=== PATIENT | female | born 1995 | race Caucasian/White ===

== ENCOUNTER 2017-10-04 11:22 | Emergency (ER) | payer OTHER ==
[~2017-10-04] VITALS: Ht 165.1 cm; Wt 63.5 kg
[~2017-10-04 11:22] MED LIST: CALZINTL TP; DIPH25 PO; DIVA250EC; FAMO20 PO; Keflex500 MG PO; LORTAB 10 MG-3473 ML PO; NAPR250 PO; Naprosyn500 MG PO; PRED20 PO; PRED5 PO; RXCEPH250S PO; RXCODACESY PO; TRIA80TC TOP; [UNRECOGNIZED DRUG - REMARK] PO; [UNRECOGNIZED DRUG - REMARK] PO
[2017-10-04 13:13] LABS: BASOPHILS ABSOLUTE AUTO 0.01 K/mm3 (0.00-0.23); BASOPHILS PERCENT AUTO 0 % (0-2); EOSINOPHILS ABSOLUTE AUTO 0.01 K/mm3 (0.00-0.68); EOSINOPHILS PERCENT AUTO 0 % (0-6); Hematocrit 42.7 % (33.0-51.0); Hemoglobin 14.5 g/dL (11.5-16.0); IMMATURE GRAN ABSOLUTE AUTO 0.02 K/mm3 (0.00-0.10); IMMATURE GRAN PERCENT AUTO 0 % (0-1); LYMPHOCYTES ABSOLUTE AUTO 1.16 K/mm3 (0.84-5.20); LYMPHOCYTES PERCENT AUTO 16 % (21-46); MONOCYTES ABSOLUTE AUTO 0.32 K/mm3 (0.16-1.47); MONOCYTES PERCENT AUTO 4 % (4-13); Mean Corpuscular HGB 30.2 pg (26.0-34.0); Mean Corpuscular Volume 89 fL (80-100); Mean Platelet Volume 9.8 fL (9.1-12.4); NEUTROPHILS ABSOLUTE AUTO 5.96 K/mm3 (1.96-9.15); NEUTROPHILS PERCENT AUTO 80 % (41-73); Platelet Count 304 K/mm3 (150-400); RDW Coefficient Variation 12.2 % (11.7-14.2); RDW Standard Deviation 39.5 fL (35.1-46.3); White Blood Cell Count 7.48 K/mm3 (4.00-11.30)
[2017-10-04 13:23] LABS: Alanine Aminotransfer (ALT/SGP 13 U/L (12-78); Albumin, Blood 4.4 g/dL (3.4-5.0); Albumin/Globulin Ratio 1.1 (0.8-1.8); Alk Phos 77 U/L (50-136); Anion Gap 7 mmol/L (6-16); Aspartate Aminotrans (AST/SGOT 19 U/L (12-37); Bilirubin, Total 0.7 mg/dL (0.1-1.0); Blood Urea Nitrogen 7 mg/dL (8-24); Bun/Creatinine Ratio 10.9 (12.0-20.0); CO2, Blood 25 mmol/L (21-32); Calcium, Blood 9.6 mg/dL (8.5-10.1); Chloride, Blood 106 mmol/L (98-108); Creatinine, Blood 0.65 mg/dL (0.40-1.00); Globulin, Blood 4.1 g/dL (2.2-4.0); Glomerular Filtration Rate >60 (60-); Glucose, Blood 91 mg/dL (70-99); Potassium, Blood 3.8 mmol/L (3.5-5.5); Sodium, Blood 138 mmol/L (136-145); Total Protein, Blood 8.5 g/dL (6.4-8.2)
[2017-10-04 13:40] LABS: Source, Urine Clean Catch
[2017-10-04 13:44] LABS: Bilirubin, Urine Neg (Neg); Blood, Urine 5+ (Neg); Glucose Qualitative, Urine Neg (Neg); Ketones, Urine 3+ (Neg); Leukocyte Esterase, Urine 2+ (Neg); Nitrite, Urine Neg (Neg); Protein, Urine 2+ (Neg); Urobilinogen, Urine NORM (Normal)
[2017-10-04 14:38] LABS: Appearance, Urine Cloudy (Clear); Color, Urine Red (P-Yellow)
[2017-10-04 14:41] LABS: Red Blood Cells, Urine TNTC /hpf (0-2); Squamous Epithelial Cells Few /hpf (Few)
[2017-10-04 14:42] LABS: Bacteria Mod /hpf
[2017-10-04] MEDS ORDERED: Macrobid 100 M100 MG PO (15:18)
== END 2017-10-04 15:36 | disposition home or self-care (01) ==
LOC: ER 11:22
PROVIDERS: Physician Assistant
DX: N30.90 Cystitis, unspecified without hematuria (principal); K92.1 Melena; Z88.8 Allergy status to other drugs, medicaments and biological substances
CPT/HCPCS: 36415; 80053; 81001; 81025; 82272; 83690; 85025; 87086; 99284

== ENCOUNTER 2018-03-11 10:45 | Emergency (ER) | payer OTHER ==
[~2018-03-11] VITALS: Ht 165.1 cm; Wt 63.5 kg
[~2018-03-11 10:45] MED LIST changes: +Macrobid 100 M100 MG PO
== END 2018-03-11 12:12 | disposition home or self-care (01) ==
LOC: ER 10:45
DX: S61.212A Laceration without foreign body of right middle finger without damage to nail, initial encounter (principal); W26.0XXA Contact with knife, initial encounter; Z88.8 Allergy status to other drugs, medicaments and biological substances
CPT/HCPCS: 12001; 99283

== ENCOUNTER 2018-06-12 18:02 | Observation (INO) | payer OTHER ==
[~2018-06-12] VITALS: Ht 165.1 cm; Wt 72.7 kg
[2018-06-12 20:06] LABS: BASOPHILS ABSOLUTE AUTO 0.04 K/mm3 (0.00-0.23); BASOPHILS PERCENT AUTO 1 % (0-2); EOSINOPHILS ABSOLUTE AUTO 0.04 K/mm3 (0.00-0.68); EOSINOPHILS PERCENT AUTO 1 % (0-6); Hematocrit 38.3 % (33.0-51.0); Hemoglobin 13.1 g/dL (11.5-16.0); IMMATURE GRAN ABSOLUTE AUTO 0.03 K/mm3 (0.00-0.10); IMMATURE GRAN PERCENT AUTO 0 % (0-1); LYMPHOCYTES ABSOLUTE AUTO 1.55 K/mm3 (0.84-5.20); LYMPHOCYTES PERCENT AUTO 20 % (21-46); MONOCYTES ABSOLUTE AUTO 0.45 K/mm3 (0.16-1.47); MONOCYTES PERCENT AUTO 6 % (4-13); Mean Corpuscular HGB 30.2 pg (26.0-34.0); Mean Corpuscular HGB Conc 34.2 g/dL (31.5-36.5); Mean Corpuscular Volume 88 fL (80-100); Mean Platelet Volume 9.7 fL (9.1-12.4); NEUTROPHILS ABSOLUTE AUTO 5.68 K/mm3 (1.96-9.15); NEUTROPHILS PERCENT AUTO 73 % (41-73); Platelet Count 302 K/mm3 (150-400); RDW Coefficient Variation 11.8 % (11.7-14.2); RDW Standard Deviation 38.2 fL (35.1-46.3); Red Blood Cell Count 4.34 M/mm3 (3.80-5.20); White Blood Cell Count 7.79 K/mm3 (4.00-11.30)
[2018-06-12 20:20] LABS: Anion Gap 8 mmol/L (6-16); Blood Urea Nitrogen 10 mg/dL (8-24); Bun/Creatinine Ratio 14.3 (12.0-20.0); CO2, Blood 27 mmol/L (21-32); Calcium, Blood 9.1 mg/dL (8.5-10.1); Chloride, Blood 105 mmol/L (98-108); Glomerular Filtration Rate >60 (60-); Glucose, Blood 98 mg/dL (70-99); Potassium, Blood 3.8 mmol/L (3.5-5.5); Sodium, Blood 140 mmol/L (136-145)
[2018-06-13 00:30] LABS: International Normalized Ratio 1.06; Prothrombin Time Results 10.9 Sec (9.7-11.5)
[2018-06-13 05:35] LABS: BASOPHILS ABSOLUTE AUTO 0.04 K/mm3 (0.00-0.23); BASOPHILS PERCENT AUTO 1 % (0-2); EOSINOPHILS ABSOLUTE AUTO 0.04 K/mm3 (0.00-0.68); EOSINOPHILS PERCENT AUTO 1 % (0-6); Hematocrit 38.3 % (33.0-51.0); Hemoglobin 12.7 g/dL (11.5-16.0); IMMATURE GRAN ABSOLUTE AUTO 0.03 K/mm3 (0.00-0.10); IMMATURE GRAN PERCENT AUTO 0 % (0-1); LYMPHOCYTES ABSOLUTE AUTO 2.02 K/mm3 (0.84-5.20); LYMPHOCYTES PERCENT AUTO 26 % (21-46); MONOCYTES ABSOLUTE AUTO 0.66 K/mm3 (0.16-1.47); MONOCYTES PERCENT AUTO 9 % (4-13); Mean Corpuscular HGB 29.2 pg (26.0-34.0); Mean Corpuscular HGB Conc 33.2 g/dL (31.5-36.5); Mean Corpuscular Volume 88 fL (80-100); NEUTROPHILS ABSOLUTE AUTO 4.98 K/mm3 (1.96-9.15); NEUTROPHILS PERCENT AUTO 64 % (41-73); Platelet Count 299 K/mm3 (150-400); RDW Coefficient Variation 11.8 % (11.7-14.2); RDW Standard Deviation 38.3 fL (35.1-46.3); Red Blood Cell Count 4.35 M/mm3 (3.80-5.20); White Blood Cell Count 7.77 K/mm3 (4.00-11.30)
[2018-06-13 05:59] LABS: Anion Gap 7 mmol/L (6-16); Blood Urea Nitrogen 11 mg/dL (8-24); Bun/Creatinine Ratio 15.4 (12.0-20.0); CO2, Blood 27 mmol/L (21-32); Calcium, Blood 8.5 mg/dL (8.5-10.1); Chloride, Blood 106 mmol/L (98-108); Creatinine, Blood 0.72 mg/dL (0.40-1.00); Glomerular Filtration Rate >60 (60-); Glucose, Blood 89 mg/dL (70-99); Potassium, Blood 3.6 mmol/L (3.5-5.5); Sodium, Blood 140 mmol/L (136-145)
[2018-06-14] MEDS ORDERED: CLAR500 PO (17:20)
[2018-06-14] MEDS ORDERED: OMEPRAZOLE MAGN20 MG PO (17:21)
[2018-06-14] MEDS ORDERED: METR500 PO (17:21)
== END 2018-06-14 18:18 | disposition home or self-care (01) ==
LOC: ER 18:02 → MEDS 18:03
PROVIDERS: Emergency Medicine; Family Medicine
DX: K92.1 Melena (principal); B96.81 Helicobacter pylori [H. pylori] as the cause of diseases classified elsewhere; G91.9 Hydrocephalus, unspecified; R62.50 Unspecified lack of expected normal physiological development in childhood; Z88.1 Allergy status to other antibiotic agents
CPT/HCPCS: 36415; 74019; 80048; 85025; 85610; 87338; 87493; 96361; 96374; 96376; 99285-25; C9113; G0378; J7030; J7120

== ENCOUNTER → 2018-11-06 | Outpatient (CLI) | payer OTHER ==
[~2018-11-06] MED LIST changes: +CLAR500 PO; +METR500 PO; +OMEPRAZOLE MAGN20 MG PO
[2018-11-08 00:12] LABS: CHLAMYDIA TRACHOMATIS, NAA Negative (Negative); NEISSERIA GONORRHOEAE, NAA Negative (Negative)
== END ==
LOC: LAB UCHC 16:19 → LAB SHORT 16:19
PROVIDERS: Nurse Practitioner Family
DX: R87.89 Other abnormal findings in specimens from female genital organs (principal)
CPT/HCPCS: 87070; 87205; 87491; 87529; 87591

== ENCOUNTER 2018-11-20 17:49 | Emergency (ER) | payer OTHER ==
[~2018-11-20] VITALS: Ht 165.1 cm; Wt 72.6 kg
[2018-11-20 19:08] LABS: BASOPHILS ABSOLUTE AUTO 0.03 K/mm3 (0.00-0.23); BASOPHILS PERCENT AUTO 0 % (0-2); EOSINOPHILS ABSOLUTE AUTO 0.04 K/mm3 (0.00-0.68); EOSINOPHILS PERCENT AUTO 1 % (0-6); Hematocrit 44.6 % (33.0-51.0); Hemoglobin 14.8 g/dL (11.5-16.0); IMMATURE GRAN ABSOLUTE AUTO 0.05 K/mm3 (0.00-0.10); IMMATURE GRAN PERCENT AUTO 1 % (0-1); LYMPHOCYTES ABSOLUTE AUTO 1.54 K/mm3 (0.84-5.20); LYMPHOCYTES PERCENT AUTO 20 % (21-46); MONOCYTES ABSOLUTE AUTO 0.41 K/mm3 (0.16-1.47); MONOCYTES PERCENT AUTO 5 % (4-13); Mean Corpuscular HGB Conc 33.2 g/dL (31.5-36.5); Mean Corpuscular Volume 91 fL (80-100); Mean Platelet Volume 9.5 fL (9.1-12.4); NEUTROPHILS ABSOLUTE AUTO 5.55 K/mm3 (1.96-9.15); NEUTROPHILS PERCENT AUTO 73 % (41-73); Platelet Count 377 K/mm3 (150-400); RDW Standard Deviation 39.8 fL (35.1-46.3); Red Blood Cell Count 4.93 M/mm3 (3.80-5.20); White Blood Cell Count 7.62 K/mm3 (4.00-11.30)
[2018-11-20 19:19] LABS: Source, Urine Clean Catch
[2018-11-20 19:22] LABS: Bilirubin, Urine Neg (Neg); Blood, Urine 4+ (Neg); Glucose Qualitative, Urine Neg (Neg); Ketones, Urine Neg (Neg); Leukocyte Esterase, Urine 1+ (Neg); Nitrite, Urine Neg (Neg); Protein, Urine Neg (Neg); Urobilinogen, Urine NORM (Normal)
[2018-11-20 19:31] LABS: Appearance, Urine Clear (Clear); Color, Urine Yellow (P-Yellow); Red Blood Cells, Urine 0-2 /hpf (0-2); Squamous Epithelial Cells Mod /hpf (Few)
[2018-11-20 19:32] LABS: Bacteria Mod /hpf
[2018-11-20 19:39] LABS: Alanine Aminotransfer (ALT/SGP 20 U/L (12-78); Albumin, Blood 4.4 g/dL (3.4-5.0); Albumin/Globulin Ratio 1.1 (0.8-1.8); Alk Phos 104 U/L (50-136); Anion Gap 8 mmol/L (6-16); Aspartate Aminotrans (AST/SGOT 22 U/L (12-37); Bilirubin, Total 0.4 mg/dL (0.1-1.0); Blood Urea Nitrogen 11 mg/dL (8-24); Bun/Creatinine Ratio 20.9 (12.0-20.0); CO2, Blood 25 mmol/L (21-32); Calcium, Blood 9.8 mg/dL (8.5-10.1); Chloride, Blood 104 mmol/L (98-108); Creatinine, Blood 0.53 mg/dL (0.40-1.00); Globulin, Blood 4.1 g/dL (2.2-4.0); Glomerular Filtration Rate >60 (60-); Glucose, Blood 110 mg/dL (70-99); Potassium, Blood 3.6 mmol/L (3.5-5.5); Sodium, Blood 137 mmol/L (136-145); Total Protein, Blood 8.5 g/dL (6.4-8.2)
== END 2018-11-20 23:21 | disposition home or self-care (01) ==
LOC: ER 17:49
PROVIDERS: Physician Assistant
DX: R10.30 Lower abdominal pain, unspecified (principal); Z88.1 Allergy status to other antibiotic agents; Z88.8 Allergy status to other drugs, medicaments and biological substances
CPT/HCPCS: 36415; 74177; 76857; 80053; 81001; 81025; 83690; 85025; 87086; 99284-25; Q9967

== ENCOUNTER → 2019-03-12 | Outpatient (CLI) | payer OTHER ==
[~2019-03-12] MED LIST changes: +CEPH500 PO
== END | disposition home or self-care (01) ==
LOC: LAB SHORT 15:04 → LAB EV 15:04
DX: N39.0 Urinary tract infection, site not specified (principal)
CPT/HCPCS: 87077; 87086; 87186

== ENCOUNTER 2019-05-30 02:45 | Emergency (ER) | payer OTHER ==
[~2019-05-30] VITALS: Ht 165.1 cm; Wt 68.0 kg
[~2019-05-30 02:45] MED LIST changes: -CEPH500 PO
[2019-05-30 03:05] LABS: Chloride (POC) 101 mmol/L (98-108); Creatinine (POC) 0.6 mg/dL (0.6-1.0); Glucose (ISTAT POC) 102 mg/dL (70-99); Hemoglobin (POC) 14.6 g/dL (12.0-16.0); Potassium (POC) 3.3 mmol/L (3.5-5.5); Sodium (POC) 139 mmol/L (135-148); Total CO2 (POC) 27 mmol/L (21-32)
[2019-05-30 03:08] LABS: Source, Urine Clean Catch
[2019-05-30 03:10] LABS: Bilirubin, Urine Neg (Neg); Blood, Urine 5+ (Neg); Glucose Qualitative, Urine Neg (Neg); Ketones, Urine Neg (Neg); Leukocyte Esterase, Urine 2+ (Neg); Nitrite, Urine Neg (Neg); Protein, Urine 1+ (Neg); Urobilinogen, Urine NORM (Normal)
[2019-05-30 03:19] LABS: Appearance, Urine Hazy (Clear); Color, Urine Yellow (P-Yellow)
[2019-05-30 03:20] LABS: Amorphous Light (0-Heavy); Bacteria Many /hpf; Red Blood Cells, Urine 0-2 /hpf (0-2); Squamous Epithelial Cells Many /hpf (Few); White Blood Cells, Urine 25-50 /hpf (0-5)
[2019-05-30] MEDS ORDERED: CEPH500 PO (03:38)
== END 2019-05-30 04:05 | disposition home or self-care (01) ==
LOC: ER 02:45
PROVIDERS: Emergency Medicine
DX: N39.0 Urinary tract infection, site not specified (principal); Z88.1 Allergy status to other antibiotic agents; Z88.8 Allergy status to other drugs, medicaments and biological substances
CPT/HCPCS: 36415; 80047; 81001; 85014; 87086; 96374; 99284-25; J1885

== ENCOUNTER → 2019-08-01 | Outpatient (CLI) | payer OTHER ==
[~2019-08-01] MED LIST changes: +CEPH500 PO
[2019-08-01 11:01] LABS: Source, Urine Clean Catch
[2019-08-01 12:46] LABS: Bilirubin, Urine Neg (Neg); Blood, Urine 2+ (Neg); Glucose Qualitative, Urine Neg (Neg); Ketones, Urine Neg (Neg); Leukocyte Esterase, Urine Neg (Neg); Nitrite, Urine Neg (Neg); Protein, Urine Neg (Neg); Urobilinogen, Urine NORM (Normal)
[2019-08-01 13:43] LABS: Appearance, Urine Clear (Clear); Color, Urine Yellow (P-Yellow)
[2019-08-01 13:44] LABS: White Blood Cells, Urine 0-2 /hpf (0-5)
[2019-08-01 13:45] LABS: Bacteria Few /hpf; Red Blood Cells, Urine 0-2 /hpf (0-2); Squamous Epithelial Cells Mod /hpf (Few)
[2019-08-01 14:40] LABS: Candida species (DNA Probe) Negative (NEGATIVE); G. vaginalis (DNA Probe) Negative (NEGATIVE); T. vaginalis (DNA Probe) Negative (NEGATIVE)
== END | disposition home or self-care (01) ==
LOC: LAB 10:05 → LAB SHORT 10:05
PROVIDERS: Advanced Practice Midwife
DX: N76.0 Acute vaginitis (principal); R10.2 Pelvic and perineal pain
CPT/HCPCS: 81001; 87086; 87480; 87510; 87660

== ENCOUNTER 2019-08-24 18:20 | Emergency (ER) | payer OTHER ==
[~2019-08-24] VITALS: Ht 167.6 cm; Wt 77.1 kg
[2019-08-24 20:09] LABS: BASOPHILS ABSOLUTE AUTO 0.03 K/mm3 (0.00-0.23); BASOPHILS PERCENT AUTO 0 % (0-2); EOSINOPHILS ABSOLUTE AUTO 0.11 K/mm3 (0.00-0.68); EOSINOPHILS PERCENT AUTO 1 % (0-6); Hematocrit 42.4 % (33.0-51.0); Hemoglobin 13.8 g/dL (11.5-16.0); IMMATURE GRAN ABSOLUTE AUTO 0.03 K/mm3 (0.00-0.10); IMMATURE GRAN PERCENT AUTO 0 % (0-1); LYMPHOCYTES ABSOLUTE AUTO 1.91 K/mm3 (0.84-5.20); LYMPHOCYTES PERCENT AUTO 25 % (21-46); MONOCYTES ABSOLUTE AUTO 0.59 K/mm3 (0.16-1.47); MONOCYTES PERCENT AUTO 8 % (4-13); Mean Corpuscular HGB 29.7 pg (26.0-34.0); Mean Corpuscular HGB Conc 32.5 g/dL (31.5-36.5); Mean Corpuscular Volume 91 fL (80-100); Mean Platelet Volume 10.5 fL (9.1-12.4); NEUTROPHILS ABSOLUTE AUTO 5.02 K/mm3 (1.96-9.15); NEUTROPHILS PERCENT AUTO 65 % (41-73); Platelet Count 319 K/mm3 (150-400); RDW Coefficient Variation 12.2 % (11.7-14.2); RDW Standard Deviation 40.7 fL (35.1-46.3); Red Blood Cell Count 4.64 M/mm3 (3.80-5.20); White Blood Cell Count 7.69 K/mm3 (4.00-11.30)
[2019-08-24 20:21] LABS: Alanine Aminotransfer (ALT/SGP 18 U/L (12-78); Albumin, Blood 3.9 g/dL (3.4-5.0); Albumin/Globulin Ratio 0.9 (0.8-1.8); Alk Phos 103 U/L (50-136); Anion Gap 7 mmol/L (6-16); Aspartate Aminotrans (AST/SGOT 20 U/L (12-37); Bilirubin, Total 0.2 mg/dL (0.1-1.0); Blood Urea Nitrogen 7 mg/dL (8-24); Bun/Creatinine Ratio 11.7 (12.0-20.0); CO2, Blood 28 mmol/L (21-32); Calcium, Blood 9.6 mg/dL (8.5-10.1); Chloride, Blood 105 mmol/L (98-108); Globulin, Blood 4.4 g/dL (2.2-4.0); Glomerular Filtration Rate >60 (60-); Glucose, Blood 96 mg/dL (70-99); Potassium, Blood 3.5 mmol/L (3.5-5.5); Sodium, Blood 140 mmol/L (136-145); Total Protein, Blood 8.3 g/dL (6.4-8.2)
== END 2019-08-24 21:04 | disposition home or self-care (01) ==
LOC: ER 18:20
PROVIDERS: Emergency Medicine
DX: R07.89 Other chest pain (principal); Z88.1 Allergy status to other antibiotic agents; Z88.8 Allergy status to other drugs, medicaments and biological substances
CPT/HCPCS: 71046; 80053; 83690; 85025; 85379; 93005; 93010; 99285-25

== ENCOUNTER → 2019-11-24 | Outpatient (CLI) | payer OTHER ==
[2019-11-24 13:40] LABS: BASOPHILS ABSOLUTE AUTO 0.03 K/mm3 (0.00-0.23); BASOPHILS PERCENT AUTO 1 % (0-2); EOSINOPHILS ABSOLUTE AUTO 0.03 K/mm3 (0.00-0.68); EOSINOPHILS PERCENT AUTO 1 % (0-6); Hematocrit 41.8 % (33.0-51.0); Hemoglobin 13.7 g/dL (11.5-16.0); IMMATURE GRAN ABSOLUTE AUTO 0.03 K/mm3 (0.00-0.10); IMMATURE GRAN PERCENT AUTO 1 % (0-1); LYMPHOCYTES ABSOLUTE AUTO 1.61 K/mm3 (0.84-5.20); LYMPHOCYTES PERCENT AUTO 25 % (21-46); MONOCYTES PERCENT AUTO 6 % (4-13); Mean Corpuscular HGB 29.1 pg (26.0-34.0); Mean Corpuscular HGB Conc 32.8 g/dL (31.5-36.5); Mean Corpuscular Volume 89 fL (80-100); Mean Platelet Volume 9.6 fL (9.1-12.4); NEUTROPHILS ABSOLUTE AUTO 4.26 K/mm3 (1.96-9.15); NEUTROPHILS PERCENT AUTO 67 % (41-73); Platelet Count 336 K/mm3 (150-400); RDW Coefficient Variation 12.3 % (11.7-14.2); RDW Standard Deviation 40.3 fL (35.1-46.3); White Blood Cell Count 6.36 K/mm3 (4.00-11.30)
== END | disposition home or self-care (01) ==
LOC: LAB EV 13:35 → LAB SHORT 13:35
PROVIDERS: Physician Assistant
DX: R10.9 Unspecified abdominal pain (principal)
CPT/HCPCS: 85025

== ENCOUNTER → 2020-02-21 | Outpatient (CLI) | payer OTHER ==
[~2020-02-21] MED LIST changes: +TRAM50 PO
[2020-02-21 15:26] LABS: BASOPHILS ABSOLUTE AUTO 0.03 K/mm3 (0.00-0.23); BASOPHILS PERCENT AUTO 0 % (0-2); EOSINOPHILS ABSOLUTE AUTO 0.02 K/mm3 (0.00-0.68); EOSINOPHILS PERCENT AUTO 0 % (0-6); Hematocrit 40.3 % (33.0-51.0); Hemoglobin 13.4 g/dL (11.5-16.0); IMMATURE GRAN ABSOLUTE AUTO 0.03 K/mm3 (0.00-0.10); IMMATURE GRAN PERCENT AUTO 0 % (0-1); LYMPHOCYTES ABSOLUTE AUTO 1.54 K/mm3 (0.84-5.20); LYMPHOCYTES PERCENT AUTO 21 % (21-46); MONOCYTES ABSOLUTE AUTO 0.41 K/mm3 (0.16-1.47); MONOCYTES PERCENT AUTO 6 % (4-13); Mean Corpuscular HGB 29.4 pg (26.0-34.0); Mean Corpuscular HGB Conc 33.3 g/dL (31.5-36.5); Mean Corpuscular Volume 88 fL (80-100); Mean Platelet Volume 9.9 fL (9.1-12.4); NEUTROPHILS ABSOLUTE AUTO 5.19 K/mm3 (1.96-9.15); NEUTROPHILS PERCENT AUTO 72 % (41-73); Platelet Count 315 K/mm3 (150-400); RDW Coefficient Variation 12.7 % (11.7-14.2); RDW Standard Deviation 41.3 fL (35.1-46.3); Red Blood Cell Count 4.56 M/mm3 (3.80-5.20); White Blood Cell Count 7.22 K/mm3 (4.00-11.30)
[2020-02-21 15:36] LABS: Alanine Aminotransfer (ALT/SGP 12 U/L (12-78); Albumin, Blood 4.3 g/dL (3.4-5.0); Alk Phos 78 U/L (40-126); Anion Gap 11 mmol/L (6-16); Aspartate Aminotrans (AST/SGOT 20 U/L (12-37); Bilirubin, Total 0.7 mg/dL (0.1-1.0); Blood Urea Nitrogen 10 mg/dL (8-24); Bun/Creatinine Ratio 12.8 (12.0-20.0); CO2, Blood 27 mmol/L (21-32); Calcium, Blood 9.1 mg/dL (8.5-10.1); Chloride, Blood 102 mmol/L (98-108); Creatinine, Blood 0.78 mg/dL (0.40-1.00); Globulin, Blood 4.2 g/dL (2.2-4.0); Glomerular Filtration Rate >60 (60-); Glucose, Blood 95 mg/dL (70-99); Potassium, Blood 3.6 mmol/L (3.5-5.5); Sodium, Blood 140 mmol/L (136-145); Total Protein, Blood 8.5 g/dL (6.4-8.2)
== END ==
LOC: LAB EV 15:22 → LAB SHORT 15:22
PROVIDERS: Emergency Medicine
DX: E86.0 Dehydration (principal)
CPT/HCPCS: 80053; 85025

== ENCOUNTER 2020-02-27 13:46 | Emergency (ER) | payer OTHER ==
[~2020-02-27] VITALS: Ht 165.1 cm; Wt 81.7 kg
[~2020-02-27 13:46] MED LIST changes: -TRAM50 PO
[2020-02-27] MEDS ORDERED: TRAM50 PO (14:11)
== END 2020-02-27 16:02 | disposition home or self-care (01) ==
LOC: ER 13:46
DX: G43.909 Migraine, unspecified, not intractable, without status migrainosus (principal); Z88.0 Allergy status to penicillin; Z88.8 Allergy status to other drugs, medicaments and biological substances
CPT/HCPCS: 36415; 70450; 96361; 96374; 96375; 99284-25; J0780; J1200; J1885; J7030

== ENCOUNTER 2020-03-16 10:12 | Emergency (ER) | payer OTHER ==
[~2020-03-16] VITALS: Ht 165.1 cm; Wt 81.7 kg
[~2020-03-16 10:12] MED LIST changes: +TRAM50 PO
[2020-03-16 11:31] LABS: BASOPHILS ABSOLUTE AUTO 0.03 K/mm3 (0.00-0.23); BASOPHILS PERCENT AUTO 1 % (0-2); EOSINOPHILS ABSOLUTE AUTO 0.02 K/mm3 (0.00-0.68); EOSINOPHILS PERCENT AUTO 0 % (0-6); Hematocrit 43.6 % (33.0-51.0); IMMATURE GRAN ABSOLUTE AUTO 0.01 K/mm3 (0.00-0.10); IMMATURE GRAN PERCENT AUTO 0 % (0-1); LYMPHOCYTES ABSOLUTE AUTO 1.42 K/mm3 (0.84-5.20); LYMPHOCYTES PERCENT AUTO 25 % (21-46); MONOCYTES ABSOLUTE AUTO 0.34 K/mm3 (0.16-1.47); MONOCYTES PERCENT AUTO 6 % (4-13); Mean Corpuscular HGB 29.2 pg (26.0-34.0); Mean Corpuscular HGB Conc 32.1 g/dL (31.5-36.5); Mean Corpuscular Volume 91 fL (80-100); Mean Platelet Volume 10.1 fL (9.1-12.4); NEUTROPHILS ABSOLUTE AUTO 3.79 K/mm3 (1.96-9.15); NEUTROPHILS PERCENT AUTO 68 % (41-73); Platelet Count 326 K/mm3 (150-400); RDW Coefficient Variation 12.9 % (11.7-14.2); RDW Standard Deviation 42.6 fL (35.1-46.3); White Blood Cell Count 5.61 K/mm3 (4.00-11.30)
[2020-03-16 11:47] LABS: Alanine Aminotransfer (ALT/SGP 18 U/L (12-78); Albumin, Blood 4.4 g/dL (3.4-5.0); Albumin/Globulin Ratio 1.1 (0.8-1.8); Alk Phos 76 U/L (50-136); Anion Gap 6 mmol/L (6-16); Aspartate Aminotrans (AST/SGOT 22 U/L (12-37); Bilirubin, Total 0.5 mg/dL (0.1-1.0); Blood Urea Nitrogen 6 mg/dL (8-24); Bun/Creatinine Ratio 8.7 (12.0-20.0); CO2, Blood 27 mmol/L (21-32); Calcium, Blood 9.5 mg/dL (8.5-10.1); Chloride, Blood 105 mmol/L (98-108); Creatinine, Blood 0.69 mg/dL (0.40-1.00); Globulin, Blood 4.1 g/dL (2.2-4.0); Glomerular Filtration Rate >60 (60-); Glucose, Blood 97 mg/dL (70-99); Potassium, Blood 3.4 mmol/L (3.5-5.5); Sodium, Blood 138 mmol/L (136-145); Total Protein, Blood 8.5 g/dL (6.4-8.2)
[2020-03-16] MEDS ORDERED: ACET325 PO (12:21)
[2020-03-16] MEDS ORDERED: ONDA4ODT MM (13:31)
== END 2020-03-16 13:41 | disposition home or self-care (01) ==
LOC: ER 10:12
PROVIDERS: Physician Assistant
DX: R51 Headache (principal); Z88.0 Allergy status to penicillin; Z88.8 Allergy status to other drugs, medicaments and biological substances
CPT/HCPCS: 36415; 70450; 80053; 85025; 96361; 96374; 96375; 99284-25; J1100; J1200; J1885; J2765; J7030

== ENCOUNTER 2020-10-09 21:07 | Emergency (ER) | payer OTHER ==
[~2020-10-09] VITALS: Ht 165.1 cm; Wt 81.7 kg
[~2020-10-09 21:07] MED LIST changes: +ACET325 PO; +FIORINAL 50-321 EACH PO; +IBUP400 PO; +METO5A PO; +ONDA4ODT MM; +PANT20 PO; +PROM25 PO; +Protonix40 MG PO; +SUMA25 PO
[2020-10-09] MEDS ORDERED: AMIT50 PO (23:37)
[2020-10-09] MEDS ORDERED: TOPI25 PO (23:38)
[2020-10-10 00:59] LABS: BASOPHILS ABSOLUTE AUTO 0.03 K/mm3 (0.00-0.23); BASOPHILS PERCENT AUTO 0 % (0-2); EOSINOPHILS ABSOLUTE AUTO 0.03 K/mm3 (0.00-0.68); EOSINOPHILS PERCENT AUTO 0 % (0-6); Hematocrit 39.5 % (33.0-51.0); Hemoglobin 12.8 g/dL (11.5-16.0); IMMATURE GRAN ABSOLUTE AUTO 0.03 K/mm3 (0.00-0.10); IMMATURE GRAN PERCENT AUTO 0 % (0-1); LYMPHOCYTES ABSOLUTE AUTO 2.11 K/mm3 (0.84-5.20); LYMPHOCYTES PERCENT AUTO 28 % (21-46); MONOCYTES ABSOLUTE AUTO 0.39 K/mm3 (0.16-1.47); MONOCYTES PERCENT AUTO 5 % (4-13); Mean Corpuscular HGB Conc 32.4 g/dL (31.5-36.5); Mean Corpuscular Volume 86 fL (80-100); Mean Platelet Volume 9.2 fL (9.1-12.4); NEUTROPHILS ABSOLUTE AUTO 5.08 K/mm3 (1.96-9.15); NEUTROPHILS PERCENT AUTO 66 % (41-73); Platelet Count 356 K/mm3 (150-400); RDW Standard Deviation 40.6 fL (35.1-46.3); Red Blood Cell Count 4.57 M/mm3 (3.80-5.20); White Blood Cell Count 7.67 K/mm3 (4.00-11.30)
[2020-10-10 01:17] LABS: Alanine Aminotransfer (ALT/SGP 10 U/L (12-78); Albumin, Blood 3.6 g/dL (3.4-5.0); Albumin/Globulin Ratio 0.9 (0.8-1.8); Alk Phos 111 U/L (50-136); Anion Gap 7 mmol/L (6-16); Aspartate Aminotrans (AST/SGOT 16 U/L (12-37); Bilirubin, Total 0.3 mg/dL (0.1-1.0); Blood Urea Nitrogen 7 mg/dL (8-24); Bun/Creatinine Ratio 10.4 (12.0-20.0); CO2, Blood 22 mmol/L (21-32); Calcium, Blood 8.9 mg/dL (8.5-10.1); Chloride, Blood 113 mmol/L (98-108); Creatinine, Blood 0.68 mg/dL (0.40-1.00); Globulin, Blood 3.9 g/dL (2.2-4.0); Glomerular Filtration Rate >60 (60-); Glucose, Blood 124 mg/dL (70-99); Potassium, Blood 3.4 mmol/L (3.5-5.5); Sodium, Blood 142 mmol/L (136-145); Total Protein, Blood 7.5 g/dL (6.4-8.2)
== END 2020-10-10 02:03 | disposition home or self-care (01) ==
LOC: ER 21:07
PROVIDERS: Emergency Medicine
DX: R07.9 Chest pain, unspecified (principal); R10.13 Epigastric pain; Z88.1 Allergy status to other antibiotic agents; Z79.899 Other long term (current) drug therapy
CPT/HCPCS: 80053; 83690; 84484; 85025; 93005; 93010; 99283-25

== ENCOUNTER 2021-09-21 12:10 | Day surgery (SDC) | payer OTHER ==
[~2021-09-21] VITALS: Ht 165.1 cm; Wt 101.0 kg
[~2021-09-21 12:10] MED LIST changes: +AMIT50 PO; +TOPI25 PO
[2021-09-21] MEDS ORDERED: BUTALB-ACETAMI1 EAC6 (12:35)
[2021-09-21] MEDS ORDERED: PROP80ER (12:36)
[2021-09-21] MEDS ORDERED: AMERGE2.5 MG (12:36)
== END 2021-09-21 13:48 | disposition home or self-care (01) ==
LOC: ORSCSDS 12:10
PROVIDERS: Surgery
PROC: 0DB68ZX Excision of Stomach, Via Natural or Artificial Opening Endoscopic, Diagnostic (ICD-10-PCS; principal; 2021-09-21 13:30)
PROC: 0DB98ZX Excision of Duodenum, Via Natural or Artificial Opening Endoscopic, Diagnostic (ICD-10-PCS; principal; 2021-09-21 13:30)
DX: R13.19 Other dysphagia (principal); K29.50 Unspecified chronic gastritis without bleeding; K44.9 Diaphragmatic hernia without obstruction or gangrene; K21.9 Gastro-esophageal reflux disease without esophagitis; Z87.19 Personal history of other diseases of the digestive system; F89 Unspecified disorder of psychological development; D70.0 Congenital agranulocytosis; Z79.899 Other long term (current) drug therapy
CPT/HCPCS: 88305; 88342; J2704; J7120

== ENCOUNTER 2021-11-06 13:54 | Emergency (ER) | payer OTHER ==
[~2021-11-06 13:54] MED LIST changes: +AMERGE2.5 MG PO; +BUTALB-ACETAMI1 EAC6; +PROP80ER PO
[2021-11-09] MEDS ORDERED: CEPH500 PO (05:44)
[2021-11-09] MEDS ORDERED: IBU600 MG PO (05:44)
== END 2021-11-06 14:34 | disposition left against medical advice (07) ==
LOC: ER 13:54
DX: Z53.21 Procedure and treatment not carried out due to patient leaving prior to being seen by health care provider (principal)

== ENCOUNTER 2021-11-10 05:07 | Inpatient (IN) | payer OTHER ==
[~2021-11-10] VITALS: Ht 165.1 cm; Wt 99.7 kg
[~2021-11-10 05:07] MED LIST changes: -AMIT50 PO; +AMITRIPTYLINE H25 MG PO; +IBU600 MG PO
[2021-11-10 05:39] LABS: Source, Urine Clean Catch
[2021-11-10 06:05] LABS: Appearance, Urine Clear (Clear); Blood, Urine 5+ (Neg); Color, Urine Amber (P-Yellow); Glucose Qualitative, Urine Neg (Neg); Ketones, Urine 3+ (Neg); Leukocyte Esterase, Urine 1+ (Neg); Nitrite, Urine Pos (Neg); Protein, Urine 2+ (Neg); Specific Gravity, Urine 1.015 (1.003-1.022); Urobilinogen, Urine 2+ (Normal)
[2021-11-10 06:14] LABS: White Blood Cell Count 11.94 K/mm3 (4.00-11.30)
[2021-11-10 06:15] LABS: BASOPHILS ABSOLUTE AUTO 0.04 K/mm3 (0.00-0.23); BASOPHILS PERCENT AUTO 0 % (0-2); EOSINOPHILS ABSOLUTE AUTO 0.09 K/mm3 (0.00-0.68); EOSINOPHILS PERCENT AUTO 1 % (0-6); Hematocrit 41.5 % (33.0-51.0); Hemoglobin 13.4 g/dL (11.5-16.0); IMMATURE GRAN ABSOLUTE AUTO 0.05 K/mm3 (0.00-0.10); IMMATURE GRAN PERCENT AUTO 0 % (0-1); LYMPHOCYTES ABSOLUTE AUTO 1.26 K/mm3 (0.84-5.20); LYMPHOCYTES PERCENT AUTO 11 % (21-46); MONOCYTES PERCENT AUTO 12 % (4-13); Mean Corpuscular HGB 28.2 pg (26.0-34.0); Mean Corpuscular HGB Conc 32.3 g/dL (31.5-36.5); Mean Corpuscular Volume 87 fL (80-100); Mean Platelet Volume 9.8 fL (9.1-12.4); NEUTROPHILS PERCENT AUTO 76 % (41-73); Platelet Count 397 K/mm3 (150-400); RDW Coefficient Variation 12.9 % (11.7-14.2); RDW Standard Deviation 41.1 fL (35.1-46.3); Red Blood Cell Count 4.76 M/mm3 (3.80-5.20)
[2021-11-10 06:19] LABS: Bilirubin, Urine 2+ (Neg)
[2021-11-10 06:21] LABS: Bacteria Few /hpf; Red Blood Cells, Urine 50-100 /hpf (0-2); Squamous Epithelial Cells Many /hpf (Few)
[2021-11-10 06:22] LABS: Mucus Light (0-Heavy)
[2021-11-10 06:30] LABS: Alanine Aminotransfer (ALT/SGP 22 U/L (12-78); Albumin, Blood 3.4 g/dL (3.4-5.0); Albumin/Globulin Ratio 0.8 (0.8-1.8); Alk Phos 86 U/L (50-136); Anion Gap 7 mmol/L (6-16); Aspartate Aminotrans (AST/SGOT 18 U/L (12-37); Bilirubin, Total 1.3 mg/dL (0.1-1.0); Blood Urea Nitrogen 15 mg/dL (8-24); Bun/Creatinine Ratio 19.3 (12.0-20.0); CO2, Blood 25 mmol/L (21-32); Calcium, Blood 8.9 mg/dL (8.5-10.1); Chloride, Blood 106 mmol/L (98-108); Creatinine, Blood 0.78 mg/dL (0.40-1.00); Glomerular Filtration Rate >60 (60-); Glucose, Blood 118 mg/dL (70-99); Potassium, Blood 3.7 mmol/L (3.5-5.5); Sodium, Blood 138 mmol/L (136-145); Total Protein, Blood 7.4 g/dL (6.4-8.2)
[2021-11-10 07:49] LABS: International Normalized Ratio 1.09; Prothrombin Time Results 11.4 Sec (9.7-11.5)
[2021-11-10 08:56] LABS: Influenza A, PCR NEGATIVE (NEGATIVE); Influenza B, PCR NEGATIVE (NEGATIVE); Resp Syncytial Virus, PCR NEGATIVE (NEGATIVE); SARS-Cov-2 (COVID-19) PCR, MMC NEGATIVE (NEGATIVE)
--- NOTE | 2021-11-10 13:57 | NUR ---
EFM Initial Interview with Community Dance Critic 1. Who did you speak with? Spoke with patient 2. What is the patient's prior level of functions? Patient lives independently with her parents and younger sister. They live in a single story dwelling with two cats and one dog. Patient is able to perform ADLs without assistance. 3. Is the patient and/or family able to provide transportation to and from doctor's appointments and picker operator prescriptions? Parents provide transportation as needed. 4. Does patient still drive? 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 POA/PCP/NOK: NOK: Mother Dunia Beck [phone]/PCP SOFTWARE TEST ANALYSTAmbrocio Grace 6. ANTICIPATED DISCHARGE NEEDS/GOALS: Home -Home Health: N/A (no preference) -Patient self manages medications -Preferred Pharmacy-[facility] 7. List barriers to discharge: No barriers on this date 8. Discharge Plan: Home discharge/Follow up with PCP within 7 days (BETTY will coordinate) 9. PCP Follow up appointment: Will be scheduled within seven calendar days of discharge. Explained importance of scheduling and attendance. 10. OTHER COMMENTS: Patient is not a .
--- NOTE | 2021-11-10 15:00 | NUR ---
INTO [facility] STARTED TO UNIT. AT BEDSIDE TO VISIT PATIENT.
--- NOTE | 2021-11-10 15:03 | NUR ---
History, Chart, Medications and Allergies reviewed before start of procedure. Patient confirms NPO status and agrees with scheduled surgery.
--- NOTE | 2021-11-10 15:33 | NUR ---
11/10/21 1533 Lb Marroquin PATIENT DETERMINED TO BE ASA APPROPRIATE FOR PROPOFOL SEDATION PRIOR TO START OF PROCEDURE BY DR. CHIN. 3-LEAD EKG REVIEWED WITH PHYSICIAN PRIOR TO START OF PROCEDURE. Patient to ENDO 1. History, Chart, Medications and Allergies reviewed before start of procedure. MONITOR INTACT WITH CONTINUOUS PULSE OXIMETRY AND INTERMITTENT BP. O2 VIA N/C INTACT THROUGHOUT SEDATION/PROCEDURE.
--- NOTE | 2021-11-10 17:00 | NUR ---
PATIENT ADMITTED TODAY FOR PARTIAL BOWEL OBSTRUCTION. DENIES ANY NAUSEA SINCE ADMIT. DID C/O 07/11 PAIN TO ABDOMEN AND DILAUDID WAS GIVEN TO TREAT WITH GOOD RELIEF. PATIENT GIVEN 2 TAP WATER ENEMAS PRIOR TO COLONOSCOPY TODAY. VSS, ON RA. UP INDEPEDENTLY IN ROOM. PATIENT IS DEVELOPMENTALLY DELAYED AND PARENTS ARE AT BEDSIDE HER CAREGIVERS AND DECISION MAKERS. PLAN IS FOR SIPS OF WATER TOLERATED THROUGH THE NIGHT AND AN ENEMA SCHEDULED PER MD ORDERS. PATIENT TO BE NPO AT NOON ON 11/11/21 FOR POSSIBLE REPEAT SCOPE. D51/2NS @ 75ML/HR INFUSING.
[2021-11-11 04:53] LABS: BASOPHILS ABSOLUTE AUTO 0.04 K/mm3 (0.00-0.23); BASOPHILS PERCENT AUTO 1 % (0-2); EOSINOPHILS ABSOLUTE AUTO 0.16 K/mm3 (0.00-0.68); EOSINOPHILS PERCENT AUTO 2 % (0-6); Hematocrit 36.7 % (33.0-51.0); Hemoglobin 11.4 g/dL (11.5-16.0); IMMATURE GRAN ABSOLUTE AUTO 0.03 K/mm3 (0.00-0.10); IMMATURE GRAN PERCENT AUTO 0 % (0-1); LYMPHOCYTES ABSOLUTE AUTO 1.52 K/mm3 (0.84-5.20); LYMPHOCYTES PERCENT AUTO 18 % (21-46); MONOCYTES ABSOLUTE AUTO 1.13 K/mm3 (0.16-1.47); MONOCYTES PERCENT AUTO 13 % (4-13); Mean Corpuscular HGB 28.1 pg (26.0-34.0); Mean Corpuscular HGB Conc 31.1 g/dL (31.5-36.5); Mean Corpuscular Volume 90 fL (80-100); Mean Platelet Volume 9.7 fL (9.1-12.4); NEUTROPHILS ABSOLUTE AUTO 5.81 K/mm3 (1.96-9.15); NEUTROPHILS PERCENT AUTO 67 % (41-73); Platelet Count 331 K/mm3 (150-400); RDW Coefficient Variation 13.1 % (11.7-14.2); RDW Standard Deviation 43.4 fL (35.1-46.3); Red Blood Cell Count 4.06 M/mm3 (3.80-5.20); White Blood Cell Count 8.69 K/mm3 (4.00-11.30)
--- NOTE | 2021-11-11 05:04 | NUR ---
SHIFT SUMMARY PATIENT C/O ABD PAIN 10/10 ABODMINAL DISTENDED TENDER TO TOUCH PT IS CONSTIPATED FOR LAST 3 DAYS PRN ADM HAS PER ORDER WITH RELIEF.PT NPO FOR PROCEDURE TODAY MOTHER BY THE BEDSIDE.
[2021-11-11 05:08] LABS: Anion Gap 7 mmol/L (6-16); Blood Urea Nitrogen 10 mg/dL (8-24); Bun/Creatinine Ratio 13.4 (12.0-20.0); CO2, Blood 23 mmol/L (21-32); Calcium, Blood 8.2 mg/dL (8.5-10.1); Chloride, Blood 107 mmol/L (98-108); Creatinine, Blood 0.74 mg/dL (0.40-1.00); Glomerular Filtration Rate >60 (60-); Glucose, Blood 107 mg/dL (70-99); Potassium, Blood 3.3 mmol/L (3.5-5.5); Sodium, Blood 137 mmol/L (136-145)
--- NOTE | 2021-11-11 06:44 | NUR ---
PATIENT STILL C/O PAIN / CRYING DR NIELSEN ORDER AND ADDITIONAL 0.5MG DIULADIN X 1 . MEDICATION ADM WITH RELIEF PT IN THE SHOWER WITH MOTHER .
--- NOTE | 2021-11-11 18:05 | NUR ---
SHIFT SUMMARY PATIENT SITTING ON EDGE OF BED. PATIENT C/O ABDOMINAL PAIN 07/11. MEDICATED PER NOV. ABDOMEN DISTENDED AND TENDER TO TOUCH. NPO. NO BM FOR OVER 3 DAYS. PATIENT AMBULATES TO RESTROOM. FAMILY AT BEDSIDE T/O SHIFT. BED IN LOW POSITION WITH CALL LIGHT IN REACH. WILL CONTINUE TO MONITOR.
--- NOTE | 2021-11-12 04:34 | NUR ---
SHIFT SUMMARY PATIENT AOX4 CONT PAIN MANAGEMENT C/O PAIN TO HER ABDOMINAL PATIENT HAD SEVERAL LOOSE STOOL AT 0400 PT HAD A MEDIUM LOOS BROWN STOOL.CONT NPO ABD X-RAY SCHEDUEL TODAY.MOTHER BY THE BEDSIDE .
[2021-11-12 04:41] LABS: BASOPHILS ABSOLUTE AUTO 0.03 K/mm3 (0.00-0.23); BASOPHILS PERCENT AUTO 1 % (0-2); EOSINOPHILS ABSOLUTE AUTO 0.08 K/mm3 (0.00-0.68); EOSINOPHILS PERCENT AUTO 1 % (0-6); Hematocrit 32.2 % (33.0-51.0); Hemoglobin 10.5 g/dL (11.5-16.0); IMMATURE GRAN ABSOLUTE AUTO 0.03 K/mm3 (0.00-0.10); IMMATURE GRAN PERCENT AUTO 1 % (0-1); LYMPHOCYTES ABSOLUTE AUTO 1.56 K/mm3 (0.84-5.20); LYMPHOCYTES PERCENT AUTO 24 % (21-46); MONOCYTES ABSOLUTE AUTO 0.62 K/mm3 (0.16-1.47); MONOCYTES PERCENT AUTO 10 % (4-13); Mean Corpuscular HGB 28.9 pg (26.0-34.0); Mean Corpuscular HGB Conc 32.6 g/dL (31.5-36.5); Mean Corpuscular Volume 89 fL (80-100); Mean Platelet Volume 9.8 fL (9.1-12.4); NEUTROPHILS ABSOLUTE AUTO 4.23 K/mm3 (1.96-9.15); NEUTROPHILS PERCENT AUTO 65 % (41-73); Platelet Count 320 K/mm3 (150-400); RDW Coefficient Variation 12.8 % (11.7-14.2); RDW Standard Deviation 41.9 fL (35.1-46.3); Red Blood Cell Count 3.63 M/mm3 (3.80-5.20); White Blood Cell Count 6.55 K/mm3 (4.00-11.30)
[2021-11-12 05:03] LABS: Anion Gap 6 mmol/L (6-16); Blood Urea Nitrogen 6 mg/dL (8-24); Bun/Creatinine Ratio 8.9 (12.0-20.0); CO2, Blood 24 mmol/L (21-32); Calcium, Blood 8.5 mg/dL (8.5-10.1); Chloride, Blood 107 mmol/L (98-108); Creatinine, Blood 0.67 mg/dL (0.40-1.00); Glomerular Filtration Rate >60 (60-); Glucose, Blood 114 mg/dL (70-99); Potassium, Blood 3.6 mmol/L (3.5-5.5); Sodium, Blood 137 mmol/L (136-145)
--- NOTE | 2021-11-12 06:18 | NUR ---
0600 PATIENT WAS PICKED UP FOR ABDOMINAL X-RAY AND BACK RESULTS STILL PENDING
--- NOTE | 2021-11-12 17:50 | NUR ---
SHIFT SUMMARY PATIENT SITTING ON EDGE OF BED. PATIENT INDEPENDENT IN ROOM. PARENTS AT BEDSIDE T/O SHIFT. PATIENT C/O HEADACHE AND NAUSEA THIS AM. MEDICATED PER NOV. PATIENT WENT FOR CT SCAN. RESULTS SHOWED THAT SHE PASSED HER STOOL MASS. SURGERY NO LONGER NEEDED. PATIENT ADVANCED TO CELIAC DIET. TOLERATING WELL. WILL CONTINUE TO MONITOR
--- NOTE | 2021-11-12 17:58 | NUR ---
SHIFT SUMMARY PATIENT ADMITTED FROM ER FOR CELLULITIS OF LLE. PATIENT FROM [facility]. REPORTED FROM FACILITY THAT PATIENT SLIDE OUT OF BED AND WAS FOUND WITH HEAD RESTING AGAINST NIGHT STAND. PATIENT ABLE TO STATE NAME, , AND WAS AWARE SHE WAS IN HOSPITAL WHEN SHE ARRIVED ON THE UNIT. PATIENT [place] AND HAS DIFFICULT TIME ANSWERING QUESTIONS AND WHEN ASKED THE SAME QUESTIONS WOULD GIVE DIFFERENT ANSWERS. PATIENT COMPLAINING OF PAIN ON LEFT SIDE OF HEAD AND LEFT EAR. NO SIGNS OF INJURY NOTED. PATIENT HAS BECOME INCREASINGLY CONFUSED ATTEMPTING TO GET OUT OF BED TWICE STATING SHE IS GOING HOME, SHE IS GOING TO BED. ELEVATED BP. MEDICATED PER NOV. BED IN LOW POSITION WITH BED ALARM ON. WILL CONTINUE TO MONITOR.
--- NOTE | 2021-11-13 05:13 | NUR ---
PATIENT SLEPT THROUGHOUT THE SHIFT. NO FURTHER COMPLAINTS OF PAIN BEYOND EARLY EVENING. SPOKE WITH PATIENT AND MOM DERRICK ABOUT THE EFFECT OF NARCOTIC PAIN MEDICATIONS AND CONSTIPATION. PATIENT STATED HER PAIN WAS A 10, ALTHOUGH SHE STATED IT WAS MUCH BETTER THAN WHEN SHE CAME INTO THE HOSPITAL. 0.5MG DILAUDID GIVEN ONCE IV AROUND 1999 WITH NO FURTHER COMPLAINTS OF DISCOMFORT. BOWEL TONES PRESENT AND NORMOACTIVE TIMES ALL 4 QUADRANTS. MOTHER REMAINED IN ROOM FOR THE REST OF NIGHT
--- NOTE | 2021-11-13 11:51 | NUR ---
DISCHARGE PT LEFT WITH MOTHER. PT TOLERATING PO WELL. HAVING BOWEL MOVEMENTS AND PASSING GAS. NO PAIN REPORTED. PT AMBULATING IN ROOM FREQUENTLY. IV REMOVED PRIOR TO DISCHARGE.
--- NOTE | 2021-11-15 08:01 | NUR ---
Per Dr. Lopez discharge appropriate. Patient does not oppose discharge. Patient discharged home to residence. Patient lives with her parents. Date of discharge: 11/11/2021 Date of admission: 11/10/2021 Provisional diagnosis at time of admission: Large bowel instruction Final Diagnosis at time of discharge: partial bowel obstruction Transportation provided by: Family/parents Dunia Beck [phone] Location/Residence: [address] [place] [address] DME Ordered: None needed Follow-ups needed: [facility] BETTY will contact patient to schedule hospital follow-up visit. Reinforced need to attend follow-up with option of telehealth appointment if unable to travel to in-office appointment. Provider/PCP: VAZQUEZ Grace When: WITHIN 1 WEEK Specialty: N/A When: N/A Confirmed numbers: Patient and parents [phone] Comment: Explained to patient to contact PCP if any questions regarding medication management, social service needs, and if condition worsens go to Urgent Care/ER. No barriers to discharge. Patient has a support network.
== END 2021-11-13 11:48 | disposition home or self-care (01) | DRG 872 ==
LOC: ER 05:07 → MEDS 05:08
PROVIDERS: Emergency Medicine; Internal Medicine Gastroenterology; Student in an Organized Health Care Education/Training Program; ADMIT Internal Medicine
PROC: 0DBP8ZX Excision of Rectum, Via Natural or Artificial Opening Endoscopic, Diagnostic (ICD-10-PCS; 2021-11-10)
PROC: 0DBN8ZX Excision of Sigmoid Colon, Via Natural or Artificial Opening Endoscopic, Diagnostic (ICD-10-PCS; principal; 2021-11-10 16:30)
PROC: 3E03329 Introduction of Other Anti-infective into Peripheral Vein, Percutaneous Approach (ICD-10-PCS; 2021-11-11)
DX: A41.9 Sepsis, unspecified organism (principal); N39.0 Urinary tract infection, site not specified; K56.690 Other partial intestinal obstruction; K63.3 Ulcer of intestine; Z20.822 Contact with and (suspected) exposure to COVID-19; K90.0 Celiac disease; G43.909 Migraine, unspecified, not intractable, without status migrainosus; Z53.29 Procedure and treatment not carried out because of patient's decision for other reasons; K44.9 Diaphragmatic hernia without obstruction or gangrene; T18.4XXA Foreign body in colon, initial encounter; Z88.8 Allergy status to other drugs, medicaments and biological substances; Z98.890 Other specified postprocedural states; Z79.899 Other long term (current) drug therapy; E80.6 Other disorders of bilirubin metabolism
CPT/HCPCS: 0241U; 36415; 74018; 74176; 74177; 74270; 76856; 80048; 80053; 81001; 81025; 83605; 83735; 85025; 85610; 85730; 86850; 86900; 86901; 87086; 88305; 96365-59; 96366; 96372; 96375; 96376; 99284-25; 99285-25; A9270; G0378; J1170; J1650; J1885; J2250; J2405; J2543; J2704; J2765; J3010; J7030; J7042; J7050; J7120; Q9967

== ENCOUNTER → 2021-11-19 | Outpatient (CLI) | payer OTHER | LOC: LAB SHORT 12:50 | DX: N39.0 Urinary tract infection, site not specified (principal) | CPT/HCPCS: 87077; 87086; 87186 ==

== ENCOUNTER → 2022-02-18 | Outpatient (CLI) | payer OTHER | END | disposition home or self-care (01) | LOC: LAB 15:19 → LAB SHORT 15:19 | DX: J02.9 Acute pharyngitis, unspecified (principal) | CPT/HCPCS: 87081 ==

== ENCOUNTER 2022-09-02 08:17 | Emergency (ER) | payer OTHER ==
[~2022-09-02] VITALS: Ht 165.1 cm; Wt 81.7 kg
== END 2022-09-02 13:51 | disposition home or self-care (01) ==
LOC: ER 08:17
DX: S46.911A Strain of unspecified muscle, fascia and tendon at shoulder and upper arm level, right arm, initial encounter (principal); Z88.8 Allergy status to other drugs, medicaments and biological substances; Z79.899 Other long term (current) drug therapy; W01.0XXA Fall on same level from slipping, tripping and stumbling without subsequent striking against object, initial encounter
CPT/HCPCS: 73030; J1885

== ENCOUNTER 2022-09-12 15:30 | Emergency (ER) | payer OTHER ==
[~2022-09-12] VITALS: Ht 172.7 cm; Wt 81.7 kg
== END 2022-09-12 16:39 | disposition left against medical advice (07) ==
LOC: ER 15:30
DX: M54.9 Dorsalgia, unspecified (principal); W19.XXXA Unspecified fall, initial encounter; Z53.21 Procedure and treatment not carried out due to patient leaving prior to being seen by health care provider
CPT/HCPCS: 99281

== ENCOUNTER 2022-10-14 09:53 | Emergency (ER) | payer OTHER ==
[~2022-10-14] VITALS: Ht 167.6 cm; Wt 83.9 kg
== END 2022-10-14 11:06 | disposition home or self-care (01) ==
LOC: ER 09:53
DX: R07.89 Other chest pain (principal); Z88.8 Allergy status to other drugs, medicaments and biological substances; Z79.899 Other long term (current) drug therapy
CPT/HCPCS: 71046; 93005; 93010

== ENCOUNTER → 2022-10-17 | Outpatient (CLI) | payer OTHER ==
[2022-10-17 12:21] LABS: BASOPHILS ABSOLUTE AUTO 0.04 K/mm3 (0.00-0.23); BASOPHILS PERCENT AUTO 1 % (0-2); EOSINOPHILS ABSOLUTE AUTO 0.09 K/mm3 (0.00-0.68); EOSINOPHILS PERCENT AUTO 2 % (0-6); Hematocrit 42.8 % (33.0-51.0); Hemoglobin 14.2 g/dL (11.5-16.0); IMMATURE GRAN ABSOLUTE AUTO 0.02 K/mm3 (0.00-0.10); IMMATURE GRAN PERCENT AUTO 0 % (0-1); LYMPHOCYTES ABSOLUTE AUTO 1.74 K/mm3 (0.84-5.20); LYMPHOCYTES PERCENT AUTO 29 % (21-46); MONOCYTES PERCENT AUTO 7 % (4-13); Mean Corpuscular HGB 29.4 pg (26.0-34.0); Mean Corpuscular HGB Conc 33.2 g/dL (31.5-36.5); Mean Corpuscular Volume 89 fL (80-100); Mean Platelet Volume 10.6 fL (9.1-12.4); NEUTROPHILS ABSOLUTE AUTO 3.75 K/mm3 (1.96-9.15); NEUTROPHILS PERCENT AUTO 62 % (41-73); Platelet Count 366 K/mm3 (150-400); RDW Coefficient Variation 13.7 % (11.7-14.2); RDW Standard Deviation 44.5 fL (35.1-46.3); Red Blood Cell Count 4.83 M/mm3 (3.80-5.20); White Blood Cell Count 6.04 K/mm3 (4.00-11.30)
[2022-10-17 12:37] LABS: Albumin, Blood 4.3 g/dL (3.4-5.0); Albumin/Globulin Ratio 1.1 (0.8-1.8); Bilirubin, Total 0.5 mg/dL (0.1-1.0); Bun/Creatinine Ratio 12.2 (12.0-20.0); Calcium, Blood 9.4 mg/dL (8.5-10.1); Creatinine, Blood 0.74 mg/dL (0.40-1.00); Globulin, Blood 3.8 g/dL (2.2-4.0); Potassium, Blood 4.2 mmol/L (3.5-5.5); Total Protein, Blood 8.1 g/dL (6.4-8.2)
== END | disposition home or self-care (01) ==
LOC: LAB SHORT 12:13
PROVIDERS: Emergency Medicine
DX: R07.9 Chest pain, unspecified (principal)
CPT/HCPCS: 80053; 84484; 85025; 85379

== ENCOUNTER → 2022-10-25 | Outpatient (CLI) | payer OTHER | LOC: LAB 15:20 → LAB SHORT 15:20 | DX: R30.0 Dysuria (principal) | CPT/HCPCS: 87086 ==

== ENCOUNTER → 2022-12-05 | Outpatient (CLI) | payer OTHER | END | disposition home or self-care (01) | LOC: LAB SHORT 14:10 → LAB 14:10 | DX: N30.00 Acute cystitis without hematuria (principal); R35.0 Frequency of micturition; R30.0 Dysuria | CPT/HCPCS: 87086 ==

== ENCOUNTER → 2023-11-09 | Outpatient (CLI) | payer OTHER | LOC: LAB SHORT 15:00 → LAB 15:00 | DX: R30.0 Dysuria (principal) | CPT/HCPCS: 87086 ==